=== PATIENT | female | born 1965 | race Caucasian/White ===

== ENCOUNTER 2017-07-04 18:56 | Emergency (ER) | payer MEDICAID ==
[~2017-07-04] VITALS: Ht 154.9 cm; Wt 51.0 kg
[~2017-07-04 18:56] MED LIST: CEPH500C5 PO; CLIN-80 PO; NITR100C6 PO; NO HOME MEDS; SUCR1ORA12 PO
[2017-07-04] MEDS ORDERED: TRIA15CR61 TOP (20:22)
[2017-07-04 20:57] VITALS: BP 138/91
== END 2017-07-04 20:58 | disposition home or self-care (01) ==
LOC: ER 18:57
DX: R21 Rash and other nonspecific skin eruption (principal); J44.9 Chronic obstructive pulmonary disease, unspecified; K21.9 Gastro-esophageal reflux disease without esophagitis; G89.29 Other chronic pain; M79.7 Fibromyalgia; F12.10 Cannabis abuse, uncomplicated; F15.10 Other stimulant abuse, uncomplicated; Z98.890 Other specified postprocedural states; Z88.8 Allergy status to other drugs, medicaments and biological substances; Z79.2 Long term (current) use of antibiotics
CPT/HCPCS: 99283

== ENCOUNTER 2017-07-21 22:16 | Emergency (ER) | payer MEDICAID ==
[~2017-07-21] VITALS: Ht 154.9 cm; Wt 50.9 kg
[~2017-07-21 22:16] MED LIST changes: +TRIA15CR61 TOP
[2017-07-21] MEDS ORDERED: ondansetron 4mg rapidly disintigrating tab PO ONE (22:55)
[2017-07-21] MEDS ORDERED: famotidine/PF 10 mg/ml inj IV ONE (22:55)
[2017-07-21] MEDS ORDERED: normal saline 1000ML IV soln IVB ONE (22:55)
[2017-07-21 23:08] LABS: BASOPHILS # (AUTO) 0.1 X10'3 (0-0.2); BASOPHILS % (AUTO) 0.7 % (0-1); EOSINOPHILS # (AUTO) 0.3 X10'3 (0-0.9); EOSINOPHILS % (AUTO) 4.1 % (0-6); HEMATOCRIT 31.5 % (35.0-45.0); HEMOGLOBIN 10.1 g/dl (12.0-16.0); LYMPHOCYTES # (AUTO) 2.2 X10'3 (1.1-4.8); LYMPHOCYTES % (AUTO) 27.7 % (21-51); MEAN CORPUSCULAR HEMOGLOBIN 24.9 PG (27.0-31.0); MEAN CORPUSCULAR HGB CONC 31.9 % (33.0-36.5); MEAN CORPUSCULAR VOLUME 77.9 FL (78-98); MEAN PLATELET VOLUME 6.7 FL (7.4-10.4); MONOCYTES # (AUTO) 0.9 X10'3 (0-0.9); MONOCYTES % (AUTO) 10.8 % (2-12); NEUTROPHILS # (AUTO) 4.5 X10'3 (1.8-7.7); NEUTROPHILS % (AUTO) 56.7 % (42-75); PLATELET COUNT 443 X10'3 (140-440); RED BLOOD COUNT 4.04 X10'6 (4.20-5.60); RED CELL DISTRIBUTION WIDTH 19.4 % (11.5-14.5)
[2017-07-21 23:22] LABS: ALANINE AMINOTRANSFERASE 19 U/L (12-78); ALBUMIN 3.5 G/DL (3.4-5.0); ALKALINE PHOSPHATASE 109 IU/L (46-116); ANION GAP 7 (8-16); ASPARTATE AMINO TRANSFERASE 17 U/L (10-37); BILIRUBIN,TOTAL 0.2 MG/DL (0.1-1.0); BLOOD UREA NITROGEN 21 MG/DL (7-18); BUN/CREATININE RATIO 26.3 (6.6-38.0); CHLORIDE 106 MMOL/L (99-107); GLUCOSE 92 MG/DL (70-104); LIPASE 104 U/L (73-393); MAGNESIUM 1.9 MG/DL (1.5-2.4); POTASSIUM 3.6 MMOL/L (3.5-5.1); SODIUM 143 MMOL/L (135-145); TOTAL CARBON DIOXIDE 29.8 MMOL/L (24-32); TOTAL PROTEIN 7.1 G/DL (6.4-8.2); eGFR 75 ML/MIN
[2017-07-21] MEDS ORDERED: ONDA4TAB12 PO (23:47)
[2017-07-22 00:11] VITALS: BP 110/87
== END 2017-07-22 00:12 | disposition home or self-care (01) ==
LOC: ER 22:16
DX: A08.4 Viral intestinal infection, unspecified (principal); J44.9 Chronic obstructive pulmonary disease, unspecified; K21.9 Gastro-esophageal reflux disease without esophagitis; F17.210 Nicotine dependence, cigarettes, uncomplicated; F12.10 Cannabis abuse, uncomplicated; F15.10 Other stimulant abuse, uncomplicated
CPT/HCPCS: 36415; 80053; 83690; 83735; 85025; 96361; 96374; 99284; J3490; J7030

== ENCOUNTER 2017-07-22 17:42 | Emergency (ER) | payer MEDICAID ==
[~2017-07-22 17:42] MED LIST changes: +ONDA4TAB12 PO
== END 2017-07-22 19:28 | disposition left against medical advice (07) ==
LOC: ER 17:43
DX: R11.0 Nausea (principal); Z53.21 Procedure and treatment not carried out due to patient leaving prior to being seen by health care provider

== ENCOUNTER 2017-11-11 14:03 | Emergency (ER) | payer MEDICAID ==
[~2017-11-11] VITALS: Ht 154.9 cm; Wt 50.8 kg
[~2017-11-11 14:03] MED LIST changes: -TRIA15CR61 TOP
[2017-11-11 14:23] VITALS: BP 136/65
== END 2017-11-11 20:46 | disposition left against medical advice (07) ==
LOC: ER 14:04
DX: R21 Rash and other nonspecific skin eruption (principal); Z53.21 Procedure and treatment not carried out due to patient leaving prior to being seen by health care provider

== ENCOUNTER 2018-01-27 08:38 | Emergency (ER) | payer MEDICAID ==
[~2018-01-27] VITALS: Ht 154.9 cm; Wt 54.0 kg
[~2018-01-27 08:38] MED LIST changes: -CEPH500C5 PO; -CLIN-80 PO; +CLIN300C85 PO
[2018-01-27] MEDS ORDERED: PENI500T2 PO (09:08)
== END 2018-01-27 09:20 | disposition home or self-care (01) ==
LOC: ER 08:39
DX: K08.9 Disorder of teeth and supporting structures, unspecified (principal); J44.9 Chronic obstructive pulmonary disease, unspecified; K21.9 Gastro-esophageal reflux disease without esophagitis; F15.90 Other stimulant use, unspecified, uncomplicated; F12.90 Cannabis use, unspecified, uncomplicated; G89.29 Other chronic pain; M79.7 Fibromyalgia; Z90.49 Acquired absence of other specified parts of digestive tract; Z90.89 Acquired absence of other organs; Z98.51 Tubal ligation status; Z79.2 Long term (current) use of antibiotics; Z79.899 Other long term (current) drug therapy
CPT/HCPCS: 99283

== ENCOUNTER 2019-04-04 11:13 | Emergency (ER) | payer MEDICAID ==
[~2019-04-04] VITALS: Ht 154.9 cm; Wt 48.2 kg
[~2019-04-04 11:13] MED LIST changes: +BISA-155 PO; +CLIN-90 PO; -CLIN300C85 PO; +MAGN296S50 PO; +ONDA8TAB9 PO
[2019-04-04 11:39] LABS: CLARITY,URINE CLOUDY (Clear); GLUCOSE, URINE NEGATIVE (Neg); KETONES,URINE TRACE mg/dl (Neg); LEUKOCYTE ESTERASE ,URINE NEGATIVE (Neg); NITRITES, URINE NEGATIVE (Neg); OCCULT BLOOD,URINE MODERATE (Neg); PH,URINE 6.5 (4.8-8.0); PROTEIN,URINE TRACE mg/dl (Neg)
[2019-04-04 11:48] LABS: COLOR,URINE DARK YELLOW (Yellow); UA COLLECTION TYPE CLN CATCH MIDSTREAM
[2019-04-04 11:50] LABS: BASOPHILS % (AUTO) 0.1 % (0-1); EOSINOPHILS # (AUTO) 0.1 X10'3 (0-0.9); EOSINOPHILS % (AUTO) 2.3 % (0-6); HEMATOCRIT 40.2 % (35.0-45.0); HEMOGLOBIN 13.5 g/dl (12.0-16.0); LYMPHOCYTES # (AUTO) 0.9 X10'3 (1.1-4.8); LYMPHOCYTES % (AUTO) 28.8 % (21-51); MEAN CORPUSCULAR HEMOGLOBIN 32.2 PG (27.0-31.0); MEAN CORPUSCULAR HGB CONC 33.5 g/dL (33.0-36.5); MEAN PLATELET VOLUME 6.7 FL (7.4-10.4); MONOCYTES # (AUTO) 0.5 X10'3 (0-0.9); MONOCYTES % (AUTO) 16.8 % (2-12); NEUTROPHILS # (AUTO) 1.6 X10'3 (1.8-7.7); PLATELET COUNT 360 X10'3 (140-440); RED BLOOD COUNT 4.19 X10'6 (4.20-5.60); RED CELL DISTRIBUTION WIDTH 17.1 % (11.5-14.5)
[2019-04-04 11:50] LABS: RBC,URINE 20-50 /HPF (0-2); WBC,URINE 0-4 /HPF (0-4)
[2019-04-04 11:52] LABS: BACTERIA,URINE FEW /HPF (Neg); MUCUS STRANDS MANY /LPF (Neg); SQUAMOUS EPITHELIAL CELL,UR FEW /LPF (FEW)
--- NOTE | 2019-04-04 11:58 | NUR ---
patient on bed comfortable and awake,call light within reach.
[2019-04-04 12:01] LABS: ALANINE AMINOTRANSFERASE 25 U/L (12-78); ALBUMIN 3.4 G/DL (3.4-5.0); ALBUMIN/GLOBULIN RATIO 0.9 (1.1-1.5); ALKALINE PHOSPHATASE 85 IU/L (46-116); ANION GAP 7 (8-16); ASPARTATE AMINO TRANSFERASE 12 U/L (10-37); BILIRUBIN,TOTAL 0.3 MG/DL (0.1-1.0); BLOOD UREA NITROGEN 12 MG/DL (7-18); BUN/CREATININE RATIO 18.8 (6.6-38.0); CHLORIDE 104 MMOL/L (99-107); CREATININE 0.64 MG/DL (0.40-0.90); GLUCOSE 110 MG/DL (70-104); LIPASE < 50 U/L (73-393); POTASSIUM 3.7 MMOL/L (3.5-5.1); SODIUM 139 MMOL/L (135-145); TOTAL CARBON DIOXIDE 28.4 MMOL/L (24-32); eGFR > 90 ML/MIN
[2019-04-04 12:05] LABS: CALCIUM 8.8 MG/DL (8.5-10.1)
[2019-04-04] MEDS ORDERED: ONDA4TAB6 PO (13:20)
[2019-04-04] MEDS ORDERED: LOPE2TAB25 PO (13:20)
[2019-04-04 13:24] LABS: TOTAL CELLS COUNTED 100
[2019-04-04 13:25] LABS: ANISOCYTOSIS 1+; PLATELET ESTIMATE NORMAL
[2019-04-04 13:33] VITALS: BP 127/78
== END 2019-04-04 13:35 | disposition home or self-care (01) ==
LOC: ER 11:13
DX: A08.4 Viral intestinal infection, unspecified (principal); J44.9 Chronic obstructive pulmonary disease, unspecified; K21.9 Gastro-esophageal reflux disease without esophagitis; G89.29 Other chronic pain; M79.7 Fibromyalgia; F41.9 Anxiety disorder, unspecified; F32.9 Major depressive disorder, single episode, unspecified; F12.90 Cannabis use, unspecified, uncomplicated; F15.90 Other stimulant use, unspecified, uncomplicated; Z85.3 Personal history of malignant neoplasm of breast; Z90.49 Acquired absence of other specified parts of digestive tract; Z90.89 Acquired absence of other organs; Z98.51 Tubal ligation status; Z98.890 Other specified postprocedural states; Z88.1 Allergy status to other antibiotic agents; Z88.8 Allergy status to other drugs, medicaments and biological substances; Z79.899 Other long term (current) drug therapy
CPT/HCPCS: 36415; 80053; 81001; 83690; 85025; 85610; 99283

== ENCOUNTER 2019-09-06 12:55 | Emergency (ER) | payer MEDICAID ==
[~2019-09-06] VITALS: Ht 154.9 cm; Wt 54.5 kg
[~2019-09-06 12:55] MED LIST changes: -CLIN-90 PO; +CLIN-97 PO; +LOPE2TAB25 PO; -MAGN296S50 PO; +MAGN296S70 PO; +ONDA4TAB6 PO
[2019-09-06 13:30] VITALS: BP 123/96
[2019-09-06] MEDS ORDERED: PRED20TA PO (14:28)
== END 2019-09-06 14:57 | disposition home or self-care (01) ==
LOC: ER 12:55
DX: R21 Rash and other nonspecific skin eruption (principal); J44.9 Chronic obstructive pulmonary disease, unspecified; K21.9 Gastro-esophageal reflux disease without esophagitis; G89.29 Other chronic pain; M79.7 Fibromyalgia; F41.9 Anxiety disorder, unspecified; F32.9 Major depressive disorder, single episode, unspecified; F12.90 Cannabis use, unspecified, uncomplicated; F15.90 Other stimulant use, unspecified, uncomplicated; Z90.49 Acquired absence of other specified parts of digestive tract; Z98.51 Tubal ligation status; Z90.89 Acquired absence of other organs; Z98.890 Other specified postprocedural states; Z88.1 Allergy status to other antibiotic agents; Z88.8 Allergy status to other drugs, medicaments and biological substances; Z79.899 Other long term (current) drug therapy
CPT/HCPCS: 99284

== ENCOUNTER 2020-01-27 06:14 | Day surgery (SDC) | payer MEDICAID ==
[2020-01-27] VITALS (7 sets, daily range): BP systolic 145–172; BP diastolic 105–111
[~2020-01-27] VITALS: Ht 154.9 cm; Wt 46.7 kg
[2020-01-27] MEDS ORDERED: PROM25TA14 PO (08:01)
[2020-01-27] MEDS ORDERED: BUDE10.22 INH (08:01)
[2020-01-27] MEDS ORDERED: MONT10TA21 PO (08:01)
[2020-01-27] MEDS ORDERED: ALBU18HF2 INH (08:01)
[2020-01-27] MEDS ORDERED: TRAZ-251 PO (08:01)
[2020-01-27] MEDS ORDERED: ACET-812 PO (08:01)
[2020-01-27] MEDS ORDERED: CYCL-1 PO (08:01)
[2020-01-27] MEDS ORDERED: effexor XR PO (08:01)
[2020-01-27] MEDS ORDERED: LORA-660 PO (08:01)
[2020-01-27] MEDS ORDERED: OMEP20TA23 PO (08:01)
[2020-01-27] MEDS ORDERED: GABA100C PO (08:01)
== END 2020-01-27 09:45 | disposition home or self-care (01) ==
LOC: SSTAY O 06:14
PROVIDERS: ATTEND Radiology Vascular & Interventional Radiology
DX: R22.1 Localized swelling, mass and lump, neck (principal); F17.210 Nicotine dependence, cigarettes, uncomplicated; Z85.3 Personal history of malignant neoplasm of breast; Z88.1 Allergy status to other antibiotic agents; Z88.2 Allergy status to sulfonamides; Z88.8 Allergy status to other drugs, medicaments and biological substances; Z98.890 Other specified postprocedural states; Z98.51 Tubal ligation status; Z79.899 Other long term (current) drug therapy; F15.90 Other stimulant use, unspecified, uncomplicated; F12.90 Cannabis use, unspecified, uncomplicated
CPT/HCPCS: 10005; 20206; 76942

== ENCOUNTER 2020-02-02 18:02 | Inpatient (IN) | payer MEDICAID ==
[~2020-02-02] VITALS: Ht 154.9 cm; Wt 50.0 kg
[~2020-02-02 18:02] MED LIST changes: +ACET-812 PO; +ALBU18HF2 INH; -BISA-155 PO; +BUDE10.22 INH; -CLIN-97 PO; +CYCL-1 PO; +GABA100C PO; -LOPE2TAB25 PO; +LORA-660 PO; -MAGN296S70 PO; +MONT10TA21 PO; -NITR100C6 PO; +OMEP20TA23 PO; -ONDA4TAB12 PO; -ONDA4TAB6 PO; -ONDA8TAB9 PO; +PROM25TA14 PO; -SUCR1ORA12 PO; +TRAZ-251 PO; +effexor XR PO
[2020-02-02] MEDS ORDERED: iohexol 350MG/ML 100ml bottle IV ONE (18:13)
[2020-02-02] MEDS ORDERED: normal saline 1000ML IV soln IVB ONE (18:15)
--- NOTE | 2020-02-02 18:15 | NUR ---
Called into ER for level 1 stroke alert and patient is in 64 slice machine.
--- NOTE | 2020-02-02 18:31 | NUR ---
stroke RN at bedside
--- NOTE | 2020-02-02 18:50 | NUR ---
[facility] evaluated patient and per neurologist the CT scan already shows an acute right stroke so she is not a canidate for TPA. Patient did give a verbal consent for the teleneurologist to assess her.
[2020-02-02 18:51] LABS: BASOPHILS # (AUTO) 0.1 X10'3 (0-0.2); EOSINOPHILS # (AUTO) 0.1 X10'3 (0-0.9); EOSINOPHILS % (AUTO) 0.7 % (0-6); HEMATOCRIT 38.9 % (35.0-45.0); HEMOGLOBIN 12.9 g/dl (12.0-16.0); LYMPHOCYTES % (AUTO) 12.8 % (21-51); MEAN CORPUSCULAR HEMOGLOBIN 31.7 PG (27.0-31.0); MEAN CORPUSCULAR HGB CONC 33.2 g/dL (33.0-36.5); MEAN CORPUSCULAR VOLUME 95.4 FL (78-98); MEAN PLATELET VOLUME 6.5 FL (7.4-10.4); MONOCYTES # (AUTO) 0.5 X10'3 (0-0.9); MONOCYTES % (AUTO) 6.8 % (2-12); NEUTROPHILS # (AUTO) 5.9 X10'3 (1.8-7.7); NEUTROPHILS % (AUTO) 78.7 % (42-75); PLATELET COUNT 427 X10'3 (140-440); RED BLOOD COUNT 4.08 X10'6 (4.20-5.60); RED CELL DISTRIBUTION WIDTH 13.8 % (11.5-14.5); WHITE BLOOD COUNT 7.5 X10'3 (4.5-11.0)
[2020-02-02 19:02] LABS: PARTIAL THROMBOPLASTIN TIME 24 SECONDS (22-32)
[2020-02-02 19:04] LABS: ALANINE AMINOTRANSFERASE 16 U/L (12-78); ALBUMIN 3.6 G/DL (3.4-5.0); ALBUMIN/GLOBULIN RATIO 1.1 (1.1-1.5); ALKALINE PHOSPHATASE 101 IU/L (46-116); ANION GAP 7 (8-16); ASPARTATE AMINO TRANSFERASE 15 U/L (10-37); BILIRUBIN,TOTAL 0.6 MG/DL (0.1-1.0); BLOOD UREA NITROGEN 23 MG/DL (7-18); BUN/CREATININE RATIO 34.8 (6.6-38.0); CHLORIDE 105 MMOL/L (99-107); CREATININE 0.66 MG/DL (0.40-0.90); GLUCOSE 94 MG/DL (70-104); POTASSIUM 3.3 MMOL/L (3.5-5.1); SODIUM 139 MMOL/L (135-145); TOTAL CARBON DIOXIDE 26.9 MMOL/L (24-32); TOTAL PROTEIN 6.9 G/DL (6.4-8.2); eGFR > 90 ML/MIN
[2020-02-02 19:07] LABS: ETHANOL < 0.010 GM/DL (0.0-0.010); TROPONIN I < 0.04 NG/ML (0.0-0.05)
--- NOTE | 2020-02-02 19:13 | NUR ---
Told Gab FELDER that patient failed her swallow and to keep her npo for now.
[2020-02-02] MEDS ORDERED: aspirin 81mg tab.chew PO ONE (19:15)
[2020-02-02] MEDS ORDERED: aspirin 300mg supp.rect RC ONE (19:20)
[2020-02-02] MEDS ORDERED: ondansetron/PF 4mg/2ml inj IV PRN (19:35)
[2020-02-02] MEDS ORDERED: acetaminophen 325mg tablet PO PRN (19:35)
[2020-02-02] MEDS ORDERED: potassium Cl 20 mEq SR tablet PO PRN ×2 (19:35)
[2020-02-02] MEDS ORDERED: mag hydrox/Alum hydrox/simeth 30ml oral suspension PO PRN (19:35)
[2020-02-02] MEDS ORDERED: magnesium hydroxide 30ml (MOM) UD suspension PO PRN (19:35)
[2020-02-02] MEDS ORDERED: potassium CL 10mEq/100ml bag 100 ML IV PRN ×2 (19:35)
[2020-02-02] MEDS: K and/or MAG REPLACEMENT MC SCH (20:00)
[2020-02-02] MEDS ORDERED: HYDR50TA65 PO (20:05)
[2020-02-02] MEDS ORDERED: CYCL-394 PO (20:05)
[2020-02-02] MEDS ORDERED: VENL75TA90 PO (20:12)
[2020-02-02] MEDS ORDERED: MELO-102 PO (20:12)
[2020-02-02] MEDS ORDERED: GABA-530 PO (20:12)
[2020-02-02] MEDS: heparin, porcine 5000 units/ml vial SQ SCH (21:29)
[2020-02-02 21:52] VITALS: BP 161/101
[2020-02-02] MEDS ORDERED: cyclobenzaprine 10mg tablet PO PRN (22:55)
[2020-02-02] MEDS ORDERED: hydrOXYzine 25 MG tablet PO PRN (22:55)
[2020-02-03] MEDS ORDERED: albuterol 2.5 MG/3 ML nebule NEB SCH
[2020-02-03] MEDS ORDERED: non-formulary drug (Acetaminophen (Tylenol Extra Strength) 2 TABLET) PO SCH (02:00)
[2020-02-03] MEDS ORDERED: LORazepam 2 mg/ml vial IV ONE (02:50)
[2020-02-03 06:00] VITALS: BP 162/101
--- NOTE | 2020-02-03 06:25 | NUR ---
REPORT GIVEN TO EMERITA QUIROZ.
--- NOTE | 2020-02-03 06:30 | NUR ---
Patient in room [facility] 4010. I have received report from Stephani FELDER and had the opportunity to ask questions and assume patient care.
[2020-02-03 06:42] LABS: BASOPHILS # (AUTO) 0.1 X10'3 (0-0.2); EOSINOPHILS # (AUTO) 0.2 X10'3 (0-0.9); EOSINOPHILS % (AUTO) 3.8 % (0-6); HEMATOCRIT 40.7 % (35.0-45.0); HEMOGLOBIN 13.4 g/dl (12.0-16.0); LYMPHOCYTES # (AUTO) 1.3 X10'3 (1.1-4.8); LYMPHOCYTES % (AUTO) 21.9 % (21-51); MEAN CORPUSCULAR HEMOGLOBIN 31.7 PG (27.0-31.0); MEAN CORPUSCULAR HGB CONC 32.9 g/dL (33.0-36.5); MEAN CORPUSCULAR VOLUME 96.4 FL (78-98); MEAN PLATELET VOLUME 7.2 FL (7.4-10.4); MONOCYTES # (AUTO) 0.5 X10'3 (0-0.9); MONOCYTES % (AUTO) 7.9 % (2-12); NEUTROPHILS # (AUTO) 3.8 X10'3 (1.8-7.7); NEUTROPHILS % (AUTO) 65.4 % (42-75); PLATELET COUNT 410 X10'3 (140-440); RED BLOOD COUNT 4.22 X10'6 (4.20-5.60); WHITE BLOOD COUNT 5.8 X10'3 (4.5-11.0)
[2020-02-03 06:48] LABS: ALANINE AMINOTRANSFERASE 16 U/L (12-78); ALBUMIN 3.4 G/DL (3.4-5.0); ALBUMIN/GLOBULIN RATIO 1.1 (1.1-1.5); ALKALINE PHOSPHATASE 101 IU/L (46-116); ANION GAP 8 (8-16); ASPARTATE AMINO TRANSFERASE 16 U/L (10-37); BILIRUBIN,TOTAL 0.9 MG/DL (0.1-1.0); BLOOD UREA NITROGEN 19 MG/DL (7-18); BUN/CREATININE RATIO 35.8 (6.6-38.0); CALCIUM 8.8 MG/DL (8.5-10.1); CHLORIDE 108 MMOL/L (99-107); CHOLESTEROL 163 MG/DL (0-200); CREATININE 0.53 MG/DL (0.40-0.90); GLUCOSE 84 MG/DL (70-104); HDL CHOLESTEROL 55 MG/DL (35-60); LDL CHOLESTEROL 98 MG/DL (50-100); POTASSIUM 3.5 MMOL/L (3.5-5.1); SODIUM 142 MMOL/L (135-145); TOTAL CARBON DIOXIDE 26.1 MMOL/L (24-32); TOTAL PROTEIN 6.6 G/DL (6.4-8.2); TRIGLYCERIDES 62 MG/DL (20-135); eGFR > 90 ML/MIN
[2020-02-03] MEDS: albuterol 2.5 MG/3 ML nebule NEB SCH ×5 (07:10→23:00)
[2020-02-03 07:22] LABS: HEMOGLOBIN A1C 5.5 % (4.5-6.2)
[2020-02-03] MEDS: K and/or MAG REPLACEMENT MC SCH ×2 (08:00→19:10)
[2020-02-03] MEDS: montelukast 10mg tablet PO SCH (08:39)
[2020-02-03] MEDS: pantoprazole 40mg Tablet.DR PO SCH (08:39)
[2020-02-03] MEDS: venlafaxine XR 75mg capsule (Q24H) PO SCH (08:39)
[2020-02-03] MEDS: loratadine 10mg tablet PO SCH (08:39)
[2020-02-03] MEDS: heparin, porcine 5000 units/ml vial SQ SCH ×2 (08:41→20:51)
[2020-02-03] MEDS ORDERED: aspirin 81mg tablet.DR PO ONE (13:45)
[2020-02-03 14:00] VITALS: BP 145/94
--- NOTE | 2020-02-03 16:19 | NUR ---
PAGER ID: [phone] MESSAGE: [id number] Cam 736 bladder scan, str cath order? Gabi [id number]
[2020-02-03 17:41] LABS: URINE AMPHETAMINE SCREEN POSITIVE (Neg); URINE BARBITUATE SCREEN NEGATIVE (Neg); URINE BENZODIAZEPINES SCREEN NEGATIVE (Neg); URINE CANNABINOID SCREEN POSITIVE (Neg); URINE COCAINE SCREEN NEGATIVE (Neg); URINE METHADONE SCREEN NEGATIVE (Neg); URINE OPIATE SCREEN NEGATIVE (Neg); URINE PHENCYCLIDINE SCREEN NEGATIVE (Neg)
[2020-02-03 18:00] VITALS: BP 136/93
[2020-02-03] MEDS ORDERED: gabapentin 300mg capsule PO SCH (21:00)
[2020-02-03 22:00] VITALS: BP 163/104
[2020-02-04] MEDS: albuterol 2.5 MG/3 ML nebule NEB SCH ×2 (04:40→07:27)
[2020-02-04 06:10] VITALS: BP 169/101
[2020-02-04 06:12] LABS: BASOPHILS % (AUTO) 0.7 % (0-1); EOSINOPHILS # (AUTO) 0.1 X10'3 (0-0.9); EOSINOPHILS % (AUTO) 2.4 % (0-6); HEMATOCRIT 40.5 % (35.0-45.0); HEMOGLOBIN 13.6 g/dl (12.0-16.0); LYMPHOCYTES # (AUTO) 1.3 X10'3 (1.1-4.8); LYMPHOCYTES % (AUTO) 23.4 % (21-51); MEAN CORPUSCULAR HEMOGLOBIN 32.5 PG (27.0-31.0); MEAN CORPUSCULAR HGB CONC 33.6 g/dL (33.0-36.5); MEAN CORPUSCULAR VOLUME 96.9 FL (78-98); MEAN PLATELET VOLUME 6.5 FL (7.4-10.4); MONOCYTES # (AUTO) 0.4 X10'3 (0-0.9); MONOCYTES % (AUTO) 6.9 % (2-12); NEUTROPHILS # (AUTO) 3.8 X10'3 (1.8-7.7); NEUTROPHILS % (AUTO) 66.6 % (42-75); PLATELET COUNT 383 X10'3 (140-440); RED BLOOD COUNT 4.18 X10'6 (4.20-5.60); RED CELL DISTRIBUTION WIDTH 13.8 % (11.5-14.5); WHITE BLOOD COUNT 5.7 X10'3 (4.5-11.0)
[2020-02-04 06:33] LABS: ALANINE AMINOTRANSFERASE 14 U/L (12-78); ALBUMIN 3.2 G/DL (3.4-5.0); ALBUMIN/GLOBULIN RATIO 0.9 (1.1-1.5); ALKALINE PHOSPHATASE 99 IU/L (46-116); ANION GAP 7 (8-16); ASPARTATE AMINO TRANSFERASE 12 U/L (10-37); BILIRUBIN,TOTAL 0.4 MG/DL (0.1-1.0); BLOOD UREA NITROGEN 14 MG/DL (7-18); BUN/CREATININE RATIO 27.5 (6.6-38.0); CALCIUM 8.8 MG/DL (8.5-10.1); CHLORIDE 106 MMOL/L (99-107); CREATININE 0.51 MG/DL (0.40-0.90); GLUCOSE 94 MG/DL (70-104); POTASSIUM 3.7 MMOL/L (3.5-5.1); SODIUM 139 MMOL/L (135-145); TOTAL CARBON DIOXIDE 26.4 MMOL/L (24-32); TOTAL PROTEIN 6.6 G/DL (6.4-8.2); eGFR > 90 ML/MIN
--- NOTE | 2020-02-04 07:04 | NUR ---
REPORT GIVEN TO EMERITA MENDES.
[2020-02-04] MEDS ORDERED: atorvastatin 20mg tablet PO SCH (08:00)
[2020-02-04] MEDS ORDERED: aspirin 81mg tablet.DR PO SCH (08:00)
[2020-02-04] MEDS: K and/or MAG REPLACEMENT MC SCH (08:00)
[2020-02-04] MEDS: pantoprazole 40mg Tablet.DR PO SCH (08:51)
[2020-02-04] MEDS: montelukast 10mg tablet PO SCH (08:52)
[2020-02-04] MEDS: venlafaxine XR 75mg capsule (Q24H) PO SCH (08:52)
[2020-02-04] MEDS: heparin, porcine 5000 units/ml vial SQ SCH (08:52)
[2020-02-04] MEDS: loratadine 10mg tablet PO SCH (08:52)
--- NOTE | 2020-02-04 09:04 | NUR ---
Bladder scanned 0900 522ml checking with provider about Santana insertion or to perform another straight cath to empty bladder; pt is going to try to void in the toilet at this time
[2020-02-04] MEDS ORDERED: tamsulosin 0.4mg capsule PO ONE (09:25)
[2020-02-04 10:00] VITALS: BP 131/88
[2020-02-04] MEDS ORDERED: ASPI81TA52 PO (11:52)
[2020-02-04] MEDS ORDERED: ATOR20TA PO (11:52)
--- NOTE | 2020-02-04 11:53 | NUR ---
Patient walked 900 feet, patient ordered flomax from Dr. Lee. Patient still re-taining 674ml urine, paged Dr. Lee to see what else we can do. Addendum: 02/04/20 at 1206 by Ekaterina Escobedo RN [phone] MESSAGE: Did you get my message about Gato Levy, she voided minimal but is still retaining 674ml. Ivette [phone]
[2020-02-04] MEDS ORDERED: FLO0.4C PO (12:17)
--- NOTE | 2020-02-04 12:20 | NUR ---
Dr Jesus cary since patient is starting to void some urine, although still retaining, that she go home on flomax since it is starting to work.
--- NOTE | 2020-02-04 12:25 | NUR ---
Patient reported last BM was this morning around 11:30. Addendum: 02/04/20 at 1608 by Mary STRAUSS Amended: Links added.
--- NOTE | 2020-02-04 12:45 | NUR ---
Patient discharged to home at this time. She was taught all discharge medications and the need to follow up for MRI. She walked home and said her house was 1 block away.
[2020-02-05] MEDS ORDERED: tamsulosin 0.4mg capsule PO SCH (08:00)
== END 2020-02-04 12:45 | disposition home or self-care (01) | DRG 45 ==
LOC: ER 18:02 → ED HOLD 19:33 → ORTHO 4S 20:35
PROVIDERS: ADMIT Internal Medicine; ATTEND Family Medicine
DX: I63.9 Cerebral infarction, unspecified (principal); J44.9 Chronic obstructive pulmonary disease, unspecified; M79.7 Fibromyalgia; Z85.3 Personal history of malignant neoplasm of breast; Z86.73 Personal history of transient ischemic attack (TIA), and cerebral infarction without residual deficits; Z90.49 Acquired absence of other specified parts of digestive tract; F15.10 Other stimulant abuse, uncomplicated; K21.9 Gastro-esophageal reflux disease without esophagitis
CPT/HCPCS: 36415; 70450; 70496; 70498; 71045; 80053; 80061; 80305; 80320; 83036; 84484; 85025; 85610; 85730; 87081; 92508; 92616; 93005; 93306; 94640; 94760; 97161; 97530; 99285; G0378; J1644; J7030; Q9967

== ENCOUNTER 2021-02-02 19:35 | Emergency (ER) | payer MEDICAID ==
[~2021-02-02] VITALS: Ht 154.9 cm; Wt 51.4 kg
[~2021-02-02 19:35] MED LIST changes: +ATOR20TA PO; -BUDE10.22 INH; -CYCL-1 PO; +CYCL-394 PO; +GABA-530 PO; -GABA100C PO; +HYDR50TA65 PO; +LORA-657 PO; -LORA-660 PO; +MELO-102 PO; -NO HOME MEDS; -PROM25TA14 PO; -TRAZ-251 PO; +VENL75TA90 PO; -effexor XR PO
[2021-02-02 19:42] VITALS: BP 115/79
[2021-02-02 20:34] LABS: BASOPHILS # (AUTO) 0.1 X10'3 (0-0.2); BASOPHILS % (AUTO) 0.8 % (0-1); EOSINOPHILS # (AUTO) 0.2 X10'3 (0-0.9); EOSINOPHILS % (AUTO) 4.1 % (0-6); HEMATOCRIT 39.7 % (35.0-45.0); LYMPHOCYTES # (AUTO) 1.1 X10'3 (1.1-4.8); MEAN CORPUSCULAR HEMOGLOBIN 31.9 PG (27.0-31.0); MEAN CORPUSCULAR HGB CONC 32.7 g/dL (33.0-36.5); MEAN CORPUSCULAR VOLUME 97.7 FL (78-98); MEAN PLATELET VOLUME 7.3 FL (7.4-10.4); MONOCYTES # (AUTO) 0.7 X10'3 (0-0.9); MONOCYTES % (AUTO) 11.8 % (2-12); NEUTROPHILS # (AUTO) 3.8 X10'3 (1.8-7.7); NEUTROPHILS % (AUTO) 64.3 % (42-75); PLATELET COUNT 340 X10'3 (140-440); RED BLOOD COUNT 4.06 X10'6 (4.20-5.60); RED CELL DISTRIBUTION WIDTH 13.7 % (11.5-14.5); WHITE BLOOD COUNT 5.9 X10'3 (4.5-11.0)
[2021-02-02 20:47] LABS: ALANINE AMINOTRANSFERASE 28 U/L (12-78); ALBUMIN 2.9 G/DL (3.4-5.0); ALBUMIN/GLOBULIN RATIO 0.7 (1.1-1.5); ALKALINE PHOSPHATASE 138 IU/L (46-116); ANION GAP 6 (8-16); ASPARTATE AMINO TRANSFERASE 23 U/L (10-37); BILIRUBIN,TOTAL 0.2 MG/DL (0.1-1.0); BLOOD UREA NITROGEN 10 MG/DL (7-18); BUN/CREATININE RATIO 15.2 (6.6-38.0); CALCIUM 8.7 MG/DL (8.5-10.1); CHLORIDE 108 MMOL/L (99-107); CREATININE 0.66 MG/DL (0.40-0.90); GLUCOSE 88 MG/DL (70-104); POTASSIUM 4.4 MMOL/L (3.5-5.1); SODIUM 141 MMOL/L (135-145); TOTAL CARBON DIOXIDE 27.1 MMOL/L (24-32); TOTAL PROTEIN 6.8 G/DL (6.4-8.2); eGFR > 90 ML/MIN
[2021-02-03] MEDS ORDERED: SULF1TAB49 PO (01:33)
[2021-02-03] MEDS ORDERED: HYDR-3972 PO (01:33)
[2021-02-03] MEDS ORDERED: sulfamethoxazole/trimethoprim DS (800/160mg) tablet PO ONE (01:35)
[2021-02-03] MEDS ORDERED: HYDROcodone/acetaminophen 10/325mg tab PO ONE (01:35)
--- NOTE | 2021-02-03 01:35 | NUR ---
wound pressed on and purulent drainage released. at BS to assist. Bacitracin and large bandaid applied and extra supplies given to the pt. with instuctions to change TID.
== END 2021-02-03 01:40 | disposition home or self-care (01) ==
LOC: ER 19:36
DX: L02.416 Cutaneous abscess of left lower limb (principal); J44.9 Chronic obstructive pulmonary disease, unspecified; K21.9 Gastro-esophageal reflux disease without esophagitis; G89.29 Other chronic pain; F41.9 Anxiety disorder, unspecified; F32.9 Major depressive disorder, single episode, unspecified; F12.90 Cannabis use, unspecified, uncomplicated; F15.90 Other stimulant use, unspecified, uncomplicated; Z90.89 Acquired absence of other organs; Z98.51 Tubal ligation status; Z98.890 Other specified postprocedural states; Z85.3 Personal history of malignant neoplasm of breast; Z88.1 Allergy status to other antibiotic agents; Z88.8 Allergy status to other drugs, medicaments and biological substances; Z79.2 Long term (current) use of antibiotics; Z79.899 Other long term (current) drug therapy
CPT/HCPCS: 36415; 73630; 80053; 83605; 84145; 85025; 87040; 99284

== ENCOUNTER 2021-02-14 17:04 | Emergency (ER) | payer MEDICAID ==
[~2021-02-14] VITALS: Ht 154.9 cm; Wt 52.3 kg
[~2021-02-14 17:04] MED LIST changes: +SULF1TAB49 PO
[2021-02-14 17:13] VITALS: BP 117/88
== END 2021-02-14 18:42 | disposition home or self-care (01) ==
LOC: ER 17:06
DX: M25.552 Pain in left hip (principal); J44.9 Chronic obstructive pulmonary disease, unspecified; K21.9 Gastro-esophageal reflux disease without esophagitis; G89.29 Other chronic pain; F41.9 Anxiety disorder, unspecified; F32.9 Major depressive disorder, single episode, unspecified; F12.90 Cannabis use, unspecified, uncomplicated; F15.90 Other stimulant use, unspecified, uncomplicated; Z90.89 Acquired absence of other organs; Z98.51 Tubal ligation status; Z98.890 Other specified postprocedural states; Z85.3 Personal history of malignant neoplasm of breast; Z88.1 Allergy status to other antibiotic agents; Z88.8 Allergy status to other drugs, medicaments and biological substances; Z79.899 Other long term (current) drug therapy
CPT/HCPCS: 73502; 99283

== ENCOUNTER 2021-04-23 11:40 | Emergency (ER) | payer MEDICAID ==
[~2021-04-23] VITALS: Ht 154.9 cm; Wt 51.8 kg
[~2021-04-23 11:40] MED LIST changes: -SULF1TAB49 PO
[2021-04-23 12:10] VITALS: BP 118/88
[2021-04-23] MEDS ORDERED: CLIN300C71 PO (14:15)
[2021-04-23] MEDS ORDERED: clindamycin 150mg capsule PO ONE (14:20)
--- NOTE | 2021-04-24 09:00 | NUR ---
ATTEMPTED TO CALL PT AT HOME TO NOTIFIY HIM THAT HE LEFT LAST EVENING WITHOUT HIS DC PAPERS AND RX. PT'S PHONE IS NOT IN SERVICE
== END 2021-04-23 14:58 | disposition left against medical advice (07) ==
LOC: ER 11:40
DX: H04.302 Unspecified dacryocystitis of left lacrimal passage (principal); E11.9 Type 2 diabetes mellitus without complications; I10 Essential (primary) hypertension; J44.9 Chronic obstructive pulmonary disease, unspecified; K21.9 Gastro-esophageal reflux disease without esophagitis; G89.29 Other chronic pain; M79.7 Fibromyalgia; F12.90 Cannabis use, unspecified, uncomplicated; F15.90 Other stimulant use, unspecified, uncomplicated; Z85.3 Personal history of malignant neoplasm of breast; Z90.49 Acquired absence of other specified parts of digestive tract; Z98.51 Tubal ligation status; Z88.1 Allergy status to other antibiotic agents; Z88.8 Allergy status to other drugs, medicaments and biological substances; Z79.899 Other long term (current) drug therapy
CPT/HCPCS: 99283

== ENCOUNTER 2021-09-03 14:37 | Emergency (ER) | payer MEDICAID ==
[~2021-09-03] VITALS: Ht 182.9 cm; Wt 43.2 kg
[2021-09-03] MEDS ORDERED: normal saline 1000ML IV soln IVB ONE (15:45)
--- NOTE | 2021-09-03 15:59 | NUR ---
poison control called for what to look for and how long to observe pt they suggested to watch for 6 hours if more narcan is need reset time for another 4 hours from new dose of narcan for labs cbc chem tylenol and asprin level and drug screen
[2021-09-03 16:20] LABS: BASOPHILS % (AUTO) 0.8 % (0-1); EOSINOPHILS # (AUTO) 0.1 X10'3 (0-0.9); EOSINOPHILS % (AUTO) 2.3 % (0-6); HEMATOCRIT 40.6 % (35.0-45.0); HEMOGLOBIN 13.4 g/dl (12.0-16.0); LYMPHOCYTES # (AUTO) 1.3 X10'3 (1.1-4.8); LYMPHOCYTES % (AUTO) 22.9 % (21-51); MEAN CORPUSCULAR HEMOGLOBIN 31.2 PG (27.0-31.0); MEAN CORPUSCULAR VOLUME 94.5 FL (78-98); MEAN PLATELET VOLUME 6.7 FL (7.4-10.4); MONOCYTES # (AUTO) 0.4 X10'3 (0-0.9); MONOCYTES % (AUTO) 6.8 % (2-12); NEUTROPHILS # (AUTO) 3.8 X10'3 (1.8-7.7); NEUTROPHILS % (AUTO) 67.2 % (42-75); PLATELET COUNT 392 X10'3 (140-440); RED CELL DISTRIBUTION WIDTH 14.9 % (11.5-14.5); WHITE BLOOD COUNT 5.7 X10'3 (4.5-11.0)
[2021-09-03 16:23] LABS: ALANINE AMINOTRANSFERASE 20 U/L (12-78); ALBUMIN/GLOBULIN RATIO 0.8 (1.1-1.5); ALKALINE PHOSPHATASE 184 IU/L (46-116); ANION GAP 6 (8-16); ASPARTATE AMINO TRANSFERASE 15 U/L (10-37); BILIRUBIN,TOTAL 0.2 MG/DL (0.1-1.0); BLOOD UREA NITROGEN 16 MG/DL (7-18); BUN/CREATININE RATIO 26.2 (6.6-38.0); CALCIUM 8.3 MG/DL (8.5-10.1); CHLORIDE 109 MMOL/L (99-107); CREATININE 0.61 MG/DL (0.40-0.90); GLUCOSE 93 MG/DL (70-104); POTASSIUM 4.3 MMOL/L (3.5-5.1); SODIUM 143 MMOL/L (135-145); TOTAL CARBON DIOXIDE 28.2 MMOL/L (24-32); TOTAL PROTEIN 6.7 G/DL (6.4-8.2); eGFR > 90 ML/MIN
[2021-09-03 17:14] LABS: ACETAMINOPHEN < 2.0 UG/ML (10-30)
--- NOTE | 2021-09-03 17:52 | NUR ---
pt in bed resting wakes easly
[2021-09-03 20:35] VITALS: BP 133/85
== END 2021-09-03 20:37 | disposition home or self-care (01) ==
LOC: ER 14:38
DX: T50.7X1A Poisoning by analeptics and opioid receptor antagonists, accidental (unintentional), initial encounter (principal); R40.0 Somnolence; J44.9 Chronic obstructive pulmonary disease, unspecified; K21.9 Gastro-esophageal reflux disease without esophagitis; G89.29 Other chronic pain; M79.7 Fibromyalgia; Z85.3 Personal history of malignant neoplasm of breast; Z90.49 Acquired absence of other specified parts of digestive tract; Z98.51 Tubal ligation status; F12.90 Cannabis use, unspecified, uncomplicated; F15.90 Other stimulant use, unspecified, uncomplicated; Z88.1 Allergy status to other antibiotic agents; Z88.8 Allergy status to other drugs, medicaments and biological substances; Z79.899 Other long term (current) drug therapy; Y92.89 Other specified places as the place of occurrence of the external cause
CPT/HCPCS: 36415; 71045; 80053; 80329; 82948; 84484; 85025; 96360; 99284; J7030

== ENCOUNTER 2021-10-14 21:58 | Emergency (ER) | payer MEDICAID ==
[~2021-10-14] VITALS: Ht 154.9 cm; Wt 47.7 kg
--- NOTE | 2021-10-14 22:10 | NUR ---
ASSAULT REPORTED TO LINNEAOM
[2021-10-14 23:02] VITALS: BP 100/69
[2021-10-14] MEDS ORDERED: acetaminophen 325mg tablet PO ONE (23:15)
== END 2021-10-15 00:05 | disposition home or self-care (01) ==
LOC: ER 21:59
DX: I99.8 Other disorder of circulatory system (principal); J44.9 Chronic obstructive pulmonary disease, unspecified; K21.9 Gastro-esophageal reflux disease without esophagitis; G89.29 Other chronic pain; F41.9 Anxiety disorder, unspecified; F32.A Depression, unspecified; F12.90 Cannabis use, unspecified, uncomplicated; F15.90 Other stimulant use, unspecified, uncomplicated; Z86.73 Personal history of transient ischemic attack (TIA), and cerebral infarction without residual deficits; Z85.3 Personal history of malignant neoplasm of breast; Z90.89 Acquired absence of other organs; Z98.51 Tubal ligation status; Z98.890 Other specified postprocedural states; Z88.1 Allergy status to other antibiotic agents; Z88.8 Allergy status to other drugs, medicaments and biological substances; Z79.899 Other long term (current) drug therapy; Y08.89XA Assault by other specified means, initial encounter; Y93.89 Activity, other specified; Y92.89 Other specified places as the place of occurrence of the external cause; Y99.8 Other external cause status
CPT/HCPCS: 70450; 99284